=== PATIENT | male | born 1935 | race Caucasian/White ===

== ENCOUNTER → 2019-03-31 | Emergency (ER) | payer OTHER ==
[~2019-03-31] VITALS: Ht 177.8 cm; Wt 102.1 kg
[~2019-03-31] MED LIST: CELEBREX100 MG PO; SKELAXIN800 MG PO
== END | disposition home or self-care (01) ==
LOC: ER 09:26
DX: M54.41 Lumbago with sciatica, right side (principal); R10.2 Pelvic and perineal pain